=== PATIENT | female | born 1960 | race Caucasian/White ===

== ENCOUNTER 2017-11-26 00:36 | Day surgery (SDC) | payer OTHER ==
[~2017-11-26 00:36] MED LIST: AFEDITAB CR; HYDACE5; HYDCHL25; METCAR750; METO100; NIFE20; OXYACE5T PO; OXYACE7.5T PO; TRAM50; WARF4; WARF5 PO
== END 2017-11-26 13:50 | disposition home or self-care (01) ==
LOC: ATC 00:36
DX: R77.8 Other specified abnormalities of plasma proteins (principal); D47.3 Essential (hemorrhagic) thrombocythemia; R61 Generalized hyperhidrosis; D64.9 Anemia, unspecified; E78.1 Pure hyperglyceridemia; R94.5 Abnormal results of liver function studies; I10 Essential (primary) hypertension; E78.5 Hyperlipidemia, unspecified
CPT/HCPCS: 36415; 80400; 82533; 96372; J0834

== ENCOUNTER → 2018-05-21 | Outpatient (CLI) | payer OTHER | END | disposition home or self-care (01) | LOC: LAB SHORT 18:25 → LAB 18:25 | DX: R30.0 Dysuria (principal) | CPT/HCPCS: 87086 ==

== ENCOUNTER 2018-09-16 16:21 | Emergency (ER) | payer OTHER ==
[~2018-09-16] VITALS: Ht 167.6 cm; Wt 56.7 kg
[~2018-09-16 16:21] MED LIST changes: +METO50 PO
[2018-09-16 17:03] LABS: Source, Urine Clean Catch
[2018-09-16 17:06] LABS: Appearance, Urine Hazy (Clear); Bilirubin, Urine Neg (Neg); Blood, Urine 2+ (Neg); Color, Urine Yellow (P-Yellow); Glucose Qualitative, Urine Neg (Neg); Ketones, Urine Neg (Neg); Leukocyte Esterase, Urine 3+ (Neg); Nitrite, Urine Neg (Neg); Protein, Urine Neg (Neg); Specific Gravity, Urine 1.015 (1.003-1.022); Urobilinogen, Urine NORM (Normal)
[2018-09-16 17:19] LABS: Bacteria Rare /hpf; Red Blood Cells, Urine 0-2 /hpf (0-2); Squamous Epithelial Cells Few /hpf (Few)
[2018-09-16] MEDS ORDERED: Ultram50 MG PO (18:10)
[2018-09-16] MEDS ORDERED: Lomotil Tablet1 EACH PO (18:10)
[2018-09-16] MEDS ORDERED: CEPH500 PO (18:10)
[2018-09-16] MEDS ORDERED: Diflucan100 MG PO (18:10)
== END 2018-09-16 18:19 | disposition home or self-care (01) ==
LOC: ER 16:21
PROVIDERS: Emergency Medicine
DX: B37.49 Other urogenital candidiasis (principal); R19.7 Diarrhea, unspecified
CPT/HCPCS: 81001; 87077; 87086; 87186; 99283

== ENCOUNTER 2018-10-19 11:28 | Observation (INO) | payer OTHER ==
[~2018-10-19] VITALS: Ht 170.2 cm; Wt 52.0 kg
[~2018-10-19 11:28] MED LIST changes: +CEPH500 PO; +Diflucan100 MG PO; +Lomotil Tablet1 EACH PO; +Ultram50 MG PO
[2018-10-19 12:05] LABS: BASOPHILS ABSOLUTE AUTO 0.09 K/mm3 (0.00-0.23); BASOPHILS PERCENT AUTO 1 % (0-2); EOSINOPHILS ABSOLUTE AUTO 0.13 K/mm3 (0.00-0.68); EOSINOPHILS PERCENT AUTO 1 % (0-6); Hematocrit 36.6 % (33.0-51.0); Hemoglobin 12.5 g/dL (11.5-16.0); IMMATURE GRAN ABSOLUTE AUTO 0.03 K/mm3 (0.00-0.10); IMMATURE GRAN PERCENT AUTO 0 % (0-1); LYMPHOCYTES ABSOLUTE AUTO 2.86 K/mm3 (0.84-5.20); LYMPHOCYTES PERCENT AUTO 25 % (21-46); MONOCYTES ABSOLUTE AUTO 0.89 K/mm3 (0.16-1.47); MONOCYTES PERCENT AUTO 8 % (4-13); Mean Corpuscular HGB 31.1 pg (26.0-34.0); Mean Corpuscular HGB Conc 34.2 g/dL (31.5-36.5); Mean Corpuscular Volume 91 fL (80-100); Mean Platelet Volume 8.9 fL (9.1-12.4); NEUTROPHILS ABSOLUTE AUTO 7.26 K/mm3 (1.96-9.15); NEUTROPHILS PERCENT AUTO 64 % (41-73); Platelet Count 415 K/mm3 (150-400); RDW Coefficient Variation 13.7 % (11.7-14.2); RDW Standard Deviation 46.2 fL (35.1-46.3); Red Blood Cell Count 4.02 M/mm3 (3.80-5.20); White Blood Cell Count 11.26 K/mm3 (4.00-11.30)
[2018-10-19 12:25] LABS: International Normalized Ratio 0.95; Prothrombin Time Results 10.1 Sec (9.7-11.5)
[2018-10-19 12:39] LABS: Alanine Aminotransfer (ALT/SGP 18 U/L (12-78); Albumin/Globulin Ratio 0.8 (0.8-1.8); Alk Phos 118 U/L (50-136); Anion Gap 10 mmol/L (6-16); Aspartate Aminotrans (AST/SGOT 20 U/L (12-37); Bilirubin, Total 0.5 mg/dL (0.1-1.0); Blood Urea Nitrogen 32 mg/dL (8-24); Bun/Creatinine Ratio 36.9 (12.0-20.0); CO2, Blood 24 mmol/L (21-32); Calcium, Blood 9.5 mg/dL (8.5-10.1); Chloride, Blood 95 mmol/L (98-108); Creatinine, Blood 0.87 mg/dL (0.40-1.00); Globulin, Blood 4.9 g/dL (2.2-4.0); Glomerular Filtration Rate >60 (60-); Glucose, Blood 83 mg/dL (70-99); Potassium, Blood 3.7 mmol/L (3.5-5.5); Sodium, Blood 129 mmol/L (136-145); Total Protein, Blood 8.9 g/dL (6.4-8.2); Troponin I 0.052 ng/mL (0.000-0.040)
[2018-10-19 16:01] LABS: Source, Urine Clean Catch
[2018-10-19 16:12] LABS: Bilirubin, Urine Neg (Neg); Blood, Urine 2+ (Neg); Glucose Qualitative, Urine Neg (Neg); Ketones, Urine Neg (Neg); Leukocyte Esterase, Urine 1+ (Neg); Nitrite, Urine Neg (Neg); Protein, Urine Neg (Neg); Specific Gravity, Urine 1.015 (1.003-1.022); Urobilinogen, Urine NORM (Normal)
[2018-10-19 16:21] LABS: Appearance, Urine Clear (Clear); Color, Urine Yellow (P-Yellow)
[2018-10-19 16:23] LABS: Red Blood Cells, Urine 0-2 /hpf (0-2)
[2018-10-19 16:24] LABS: Bacteria Rare /hpf; Squamous Epithelial Cells Many /hpf (Few)
[2018-10-19] MEDS ORDERED: [UNRECOGNIZED DRUG - CODE] PO (16:51)
[2018-10-19] MEDS ORDERED: CHLO25B PO (18:07)
[2018-10-19] MEDS ORDERED: ACID REDUCER 1150 MG PO (18:07)
[2018-10-19] MEDS ORDERED: LISI20 PO (18:08)
--- NOTE | 2018-10-19 19:17 | NUR ---
SHIFT SUMMARY PATIENT ADMITTED AT 1740. QUICK ADMIT COMPLETED. TELE IN PLACE. A&O X4, INDEPENDENT IN THE ROOM. CARDIAC DIET. BED IN LOWEST POSITION, CALL LIGHT WITHIN REACH. DENIES ANY PAIN/CHEST PAIN AT THIS TIME.
[2018-10-19 20:25] LABS: Creatine Kinase MB Index 3.8 (0.0-4.0); Troponin I 0.07 ng/mL (0.000-0.040)
--- NOTE | 2018-10-20 03:47 | NUR ---
SHIFT SUMMARY PT ADMITTED FOR ACUTE CORONARY SYNDROME. INCREASED TROPONINS. DNR. CARDIAC DIET. INDEPENDENT. 20 G IV L HAND. MEDICATIONS WHOLE WITH WATER. TELE-NSR AT A RATE OF 65. PT REPORTED HAVING AN OUTPATIENT PET SCNA TOMMORROW AND NEEDING LOW CAR, LOW SUGAR DIET. PT PRESENTED TO THE ED WITH C/O CP. THE PT REPORTED SHE WAS DRIVING WHEN SHE BEGAN TO HAVE PAIN IN THE L SIDE OF HER CHEST THAT RADIATED TO HER BACK THAT LASTED FOR ABOUT AN HR. THE PTS CP HAS SINCE RESOLVED ON ITS OWN. THE PTS TROPONIN DID INCREASE FROM 0.052 TO 0.070 WITH THE SECOND DRAW. THE PT HAS DENIED CP AND IS CONCEARNED ABOUT NOT BEING ABLE TO DC TOMORROW FOR PET SCAN. THE PT HAS APPEARED TO SLEEP COMFORTABLY MOST OF THE NIGHT WITH NO APPARENT SIGNS OF ACUTE DISTRESS. ABLE TO MAKE NEEDS KNOWN AND CALL LIGHT IN REACH.
[2018-10-20 05:31] LABS: Hematocrit 31.7 % (33.0-51.0); Mean Corpuscular HGB 31.3 pg (26.0-34.0); Mean Corpuscular HGB Conc 34.7 g/dL (31.5-36.5); Mean Corpuscular Volume 90 fL (80-100); Mean Platelet Volume 8.9 fL (9.1-12.4); Platelet Count 391 K/mm3 (150-400); RDW Coefficient Variation 13.5 % (11.7-14.2); Red Blood Cell Count 3.51 M/mm3 (3.80-5.20); White Blood Cell Count 8.06 K/mm3 (4.00-11.30)
[2018-10-20 05:39] LABS: Creatine Kinase MB 2.2 ng/mL (0.0-3.6); Creatine Kinase MB Index 4.4 (0.0-4.0); Troponin I 0.07 ng/mL (0.000-0.040)
[2018-10-20 06:01] LABS: Anion Gap 11 mmol/L (6-16); Blood Urea Nitrogen 31 mg/dL (8-24); Bun/Creatinine Ratio 36.2 (12.0-20.0); CO2, Blood 22 mmol/L (21-32); Calcium, Blood 8.9 mg/dL (8.5-10.1); Chloride, Blood 94 mmol/L (98-108); Cholesterol 179 mg/dL (50-200); Creatinine, Blood 0.86 mg/dL (0.40-1.00); Glomerular Filtration Rate >60 (60-); Glucose, Blood 79 mg/dL (70-99); HDL Cholesterol 36 mg/dL (>39); LDL/HDL RATIO 3.2; Low Density Lipoprotein Chol 116 mg/dL (0-110); Potassium, Blood 3.6 mmol/L (3.5-5.5); Sodium, Blood 127 mmol/L (136-145); Triglycerides 133 mg/dL (30-160); Very Low Density Lipoprot Chol 26 mg/dL (6-32)
--- NOTE | 2018-10-20 09:16 | NUR ---
Echocardiogram completed.
--- NOTE | 2018-10-20 17:35 | NUR ---
PT HAS BEEN WORKING ON HAVING HER STRESS TEST COMPLETED TODAY. PT AOX4 NO CHEST PAIN REPORTED OR SHORTNESS OF BREATH. PT WAITING FOR RESULTS AT THIS TIME. NO DISTRESS NOTED INDEPENDENT IN ROOM.
[2018-10-21 05:36] LABS: Bun/Creatinine Ratio 26.4 (12.0-20.0); Calcium, Blood 8.9 mg/dL (8.5-10.1); Creatinine, Blood 1.48 mg/dL (0.40-1.00); Potassium, Blood 3.5 mmol/L (3.5-5.5)
--- NOTE | 2018-10-21 07:20 | NUR ---
SHIFT SUMMARY: NO CHEST PAIN THIS SHIFT. AWAITING RESULTS FROM STRESS TEST THIS AM, PT ANXIOUSLY AWAITING TO GO HOME, STATES SHE IS "SICK OF BEING HERE". PT REQUESTS TO BE LEFT ALONE ALL NIGHT AFTER PM VITALS. THIS WISH WAS RESPECTED BY STAFF THIS SHIFT. NO OTHER CHANGES TO REPORT. WILL CONT TO MONITOR AND PROVIDE CARE UNTIL PRESUMED BY ONCOMING RN.
[2018-10-21] MEDS ORDERED: ASPI81CH PO (12:07)
[2018-10-21] MEDS ORDERED: ATOR40TA PO (12:23)
--- NOTE | 2018-10-21 12:46 | NUR ---
PT AOX4 AND COOPERATIVE OF ALL CARE. PT HAD ALL PAPERS REVIEWED AND SCHEDULED APPOINTMENTS COVERED AND SIGNED PAPERS. EDUCATIONL MATERIAL SENT. PT REFUSED ESCORT OUT AND WALKED OUT ON HER OWN POWER. NO DISTRESS NOTED AND NO CHEST PAIN REPORTED TODAY.
== END 2018-10-21 12:56 | disposition home or self-care (01) ==
LOC: ER 11:28 → MEDS 11:29
PROVIDERS: Physician Assistant; ADMIT Internal Medicine
DX: R07.89 Other chest pain (principal); I10 Essential (primary) hypertension; N17.9 Acute kidney failure, unspecified; E87.1 Hypo-osmolality and hyponatremia; I95.9 Hypotension, unspecified; D64.9 Anemia, unspecified; C79.51 Secondary malignant neoplasm of bone; M84.48XA Pathological fracture, other site, initial encounter for fracture; K21.9 Gastro-esophageal reflux disease without esophagitis; E78.5 Hyperlipidemia, unspecified; K76.0 Fatty (change of) liver, not elsewhere classified; M54.9 Dorsalgia, unspecified; G47.00 Insomnia, unspecified; G89.29 Other chronic pain; E55.9 Vitamin D deficiency, unspecified; R63.4 Abnormal weight loss; R79.89 Other specified abnormal findings of blood chemistry; F17.210 Nicotine dependence, cigarettes, uncomplicated; Z88.6 Allergy status to analgesic agent; Z88.0 Allergy status to penicillin; Z88.5 Allergy status to narcotic agent; Z88.8 Allergy status to other drugs, medicaments and biological substances; Z79.899 Other long term (current) drug therapy; Z90.710 Acquired absence of both cervix and uterus; Z98.890 Other specified postprocedural states; Z68.1 Body mass index [BMI] 19.9 or less, adult
CPT/HCPCS: 36415; 71046; 78452; 80048; 80053; 80061; 81001; 82550; 82553; 83036; 84484; 85025; 85027; 85610; 87086; 93005; 93010; 93017; 93306; 99285-25; A9500; C9113; G0378; J0706; J2785

== ENCOUNTER → 2018-10-27 | Outpatient (CLI) | payer OTHER ==
[~2018-10-27] MED LIST changes: +ACID REDUCER 1150 MG PO; +ASPI81CH PO; +ATOR40TA PO; +CHLO25B PO; +LISI20 PO; +[UNRECOGNIZED DRUG - CODE] PO
[2018-10-27 20:13] LABS: Anion Gap 6 mmol/L (6-16); Blood Urea Nitrogen 16 mg/dL (8-24); Bun/Creatinine Ratio 19.7 (12.0-20.0); CO2, Blood 27 mmol/L (21-32); Calcium, Blood 8.6 mg/dL (8.5-10.1); Chloride, Blood 94 mmol/L (98-108); Creatinine, Blood 0.81 mg/dL (0.40-1.00); Glomerular Filtration Rate >60 (60-); Glucose, Blood 89 mg/dL (70-99); Potassium, Blood 4.1 mmol/L (3.5-5.5); Sodium, Blood 127 mmol/L (136-145)
[2018-10-27 20:27] LABS: Sodium, Urine, Random 53 mmol/L (20-110)
[2018-10-27 20:39] LABS: Osmolality, Urine 390 mos/kg (15-1400)
[2018-10-27 20:40] LABS: Osmolality, Serum 273 mos/KG (275-300)
== END ==
LOC: LAB 19:32 → LAB SHORT 19:32
PROVIDERS: Family Medicine
DX: E87.1 Hypo-osmolality and hyponatremia (principal)
CPT/HCPCS: 80048; 83930; 83935; 84300; 84443

== ENCOUNTER → 2019-05-11 | Outpatient (CLI) | payer OTHER ==
[2019-05-11 09:36] LABS: BASOPHILS ABSOLUTE AUTO 0.07 K/mm3 (0.00-0.23); BASOPHILS PERCENT AUTO 1 % (0-2); EOSINOPHILS ABSOLUTE AUTO 0.07 K/mm3 (0.00-0.68); EOSINOPHILS PERCENT AUTO 1 % (0-6); Hematocrit 36.5 % (33.0-51.0); Hemoglobin 13.2 g/dL (11.5-16.0); IMMATURE GRAN ABSOLUTE AUTO 0.02 K/mm3 (0.00-0.10); IMMATURE GRAN PERCENT AUTO 0 % (0-1); LYMPHOCYTES PERCENT AUTO 23 % (21-46); MONOCYTES ABSOLUTE AUTO 0.82 K/mm3 (0.16-1.47); MONOCYTES PERCENT AUTO 8 % (4-13); Mean Corpuscular HGB Conc 36.2 g/dL (31.5-36.5); Mean Corpuscular Volume 86 fL (80-100); Mean Platelet Volume 8.5 fL (9.1-12.4); NEUTROPHILS ABSOLUTE AUTO 6.78 K/mm3 (1.96-9.15); NEUTROPHILS PERCENT AUTO 67 % (41-73); Platelet Count 375 K/mm3 (150-400); RDW Coefficient Variation 12.4 % (11.7-14.2); RDW Standard Deviation 38.6 fL (35.1-46.3); Red Blood Cell Count 4.26 M/mm3 (3.80-5.20); White Blood Cell Count 10.06 K/mm3 (4.00-11.30)
[2019-05-11 09:48] LABS: Albumin, Blood 4.1 g/dL (3.4-5.0); Albumin/Globulin Ratio 0.9 (0.8-1.8); Bilirubin, Total 0.5 mg/dL (0.1-1.0); Globulin, Blood 4.6 g/dL (2.2-4.0); Potassium, Blood 4.1 mmol/L (3.5-5.5); Total Protein, Blood 8.7 g/dL (6.4-8.2)
== END ==
LOC: LAB EV 09:32 → LAB SHORT 09:32
PROVIDERS: Family Medicine
DX: R11.2 Nausea with vomiting, unspecified (principal)
CPT/HCPCS: 80053; 85025

== ENCOUNTER 2019-11-07 18:03 | Emergency (ER) | payer OTHER ==
[~2019-11-07] VITALS: Ht 160 cm; Wt 59.9 kg
[2019-11-07] MEDS ORDERED: Prinivil10 MG PO (19:20)
[2019-11-07] MEDS ORDERED: AMLO10 PO (19:20)
== END 2019-11-07 22:16 | disposition home or self-care (01) ==
LOC: ER 18:03
DX: M79.661 Pain in right lower leg (principal); I10 Essential (primary) hypertension; Z87.891 Personal history of nicotine dependence; Z88.0 Allergy status to penicillin; Z88.5 Allergy status to narcotic agent; Z88.8 Allergy status to other drugs, medicaments and biological substances
CPT/HCPCS: 99283; A9270

== ENCOUNTER 2019-11-26 06:45 | Day surgery (SDC) | payer OTHER ==
[~2019-11-26] VITALS: Ht 162.6 cm; Wt 60.0 kg
[~2019-11-26 06:45] MED LIST changes: +AMLO10 PO; +Prinivil10 MG PO
[2019-11-26] MEDS ORDERED: CILO100 PO (09:36)
--- NOTE | 2019-11-26 11:19 | NUR ---
REMAINDER OF AIR REMOVED FROM TR BAND. NO BLEEDING AT SITE. TO ROOM AIR.
--- NOTE | 2019-11-26 12:49 | NUR ---
DISCHARGE PT AMBULATED TO RESTROOM WITHOUT COMPLICATIONS. PT ALSO DRESSED SELF WITH NO COMPLICATIONS. PT AOX4. DENIES ANY PAIN. PT STATES HER UNDERSTANDING OD DISCHARGE AND SITE CARE INSTRUCTIONS AND DENIES ANY QUESTIONS OR CONCERNS. TR BAND REMOVED. SITE CLEANED UP AND CLOTH DOT DRESSING APPLIED. WHITE ARM BOARD REVERSED AND PLACED BACK ON ARM. PT SENT HOME WITH A SLING. IV DCD WITH CATH INTACT. VSS. PT SENT HOME WITH FRIEND JAMES.
== END 2019-11-26 12:15 | disposition home or self-care (01) ==
LOC: MHTC 06:45
DX: I70.213 Atherosclerosis of native arteries of extremities with intermittent claudication, bilateral legs (principal); I10 Essential (primary) hypertension; E78.5 Hyperlipidemia, unspecified; M54.9 Dorsalgia, unspecified; G89.29 Other chronic pain; E55.9 Vitamin D deficiency, unspecified; Z79.899 Other long term (current) drug therapy; Z79.82 Long term (current) use of aspirin; Z87.891 Personal history of nicotine dependence; Z88.0 Allergy status to penicillin; Z88.5 Allergy status to narcotic agent; Z88.8 Allergy status to other drugs, medicaments and biological substances
CPT/HCPCS: 36245; 75630; 75774; 76937; 85347; 99152; 99153; C1769; C1887; C1894; J1644; J2250; J3010; J7030; Q9967

== ENCOUNTER → 2020-08-31 | Outpatient (CLI) | payer OTHER ==
[~2020-08-31] MED LIST changes: +CILO100 PO; +CLOP75 PO; +L-Glutamine500 MG PO; +MELA3 PO
[2020-08-31 09:14] LABS: BASOPHILS ABSOLUTE AUTO 0.01 K/mm3 (0.00-0.23); BASOPHILS PERCENT AUTO 0 % (0-2); EOSINOPHILS ABSOLUTE AUTO 0.11 K/mm3 (0.00-0.68); EOSINOPHILS PERCENT AUTO 1 % (0-6); Hematocrit 37.3 % (33.0-51.0); Hemoglobin 13.1 g/dL (11.5-16.0); IMMATURE GRAN ABSOLUTE AUTO 0.06 K/mm3 (0.00-0.10); IMMATURE GRAN PERCENT AUTO 0 % (0-1); LYMPHOCYTES ABSOLUTE AUTO 1.52 K/mm3 (0.84-5.20); LYMPHOCYTES PERCENT AUTO 10 % (21-46); MONOCYTES ABSOLUTE AUTO 1.35 K/mm3 (0.16-1.47); MONOCYTES PERCENT AUTO 9 % (4-13); Mean Corpuscular HGB 32.4 pg (26.0-34.0); Mean Corpuscular HGB Conc 35.1 g/dL (31.5-36.5); Mean Corpuscular Volume 92 fL (80-100); Mean Platelet Volume 9.6 fL (9.1-12.4); NEUTROPHILS ABSOLUTE AUTO 11.58 K/mm3 (1.96-9.15); NEUTROPHILS PERCENT AUTO 79 % (41-73); Platelet Count 360 K/mm3 (150-400); RDW Coefficient Variation 12.4 % (11.7-14.2); RDW Standard Deviation 41.7 fL (35.1-46.3); Red Blood Cell Count 4.04 M/mm3 (3.80-5.20); White Blood Cell Count 14.63 K/mm3 (4.00-11.30)
[2020-08-31 09:38] LABS: Alanine Aminotransfer (ALT/SGP 23 U/L (12-78); Albumin/Globulin Ratio 1.1 (0.8-1.8); Alk Phos 87 U/L (40-126); Anion Gap 6 mmol/L (6-16); Aspartate Aminotrans (AST/SGOT 16 U/L (12-37); Bilirubin, Total 0.4 mg/dL (0.1-1.0); Blood Urea Nitrogen 22 mg/dL (8-24); Bun/Creatinine Ratio 30.1 (12.0-20.0); CO2, Blood 28 mmol/L (21-32); Chloride, Blood 96 mmol/L (98-108); Creatinine, Blood 0.73 mg/dL (0.40-1.00); Free Thyroxine 1.01 ng/dL (0.70-1.60); Globulin, Blood 3.7 g/dL (2.2-4.0); Glomerular Filtration Rate >60 (60-); Glucose, Blood 81 mg/dL (70-99); Potassium, Blood 3.9 mmol/L (3.5-5.5); Sodium, Blood 130 mmol/L (136-145); Thyroid Stimulating Hormone 2.303 uIU/mL (0.360-4.800); Total Protein, Blood 7.7 g/dL (6.4-8.2)
== END | disposition home or self-care (01) ==
LOC: LAB EV 09:09 → LAB SHORT 09:09
PROVIDERS: General Practice
DX: M54.16 Radiculopathy, lumbar region (principal); R53.81 Other malaise
CPT/HCPCS: 80053; 82607; 82746; 84439; 84443; 85025; 85651

== ENCOUNTER 2021-09-24 09:51 | Day surgery (SDC) | payer OTHER ==
[~2021-09-24] VITALS: Ht 160 cm; Wt 63.0 kg
[~2021-09-24 09:51] MED LIST changes: +CALCIUM 600 WI1 EAC1; +MAGCHL64ER; +OXYC5; +Robaxin750 MG
[2021-09-24 11:39] LABS: BASOPHILS PERCENT AUTO 1 % (0-2); EOSINOPHILS ABSOLUTE AUTO 0.08 K/mm3 (0.00-0.68); EOSINOPHILS PERCENT AUTO 1 % (0-6); Hematocrit 36.9 % (33.0-51.0); Hemoglobin 12.2 g/dL (11.5-16.0); IMMATURE GRAN ABSOLUTE AUTO 0.03 K/mm3 (0.00-0.10); IMMATURE GRAN PERCENT AUTO 0 % (0-1); LYMPHOCYTES ABSOLUTE AUTO 2.04 K/mm3 (0.84-5.20); LYMPHOCYTES PERCENT AUTO 23 % (21-46); MONOCYTES ABSOLUTE AUTO 0.51 K/mm3 (0.16-1.47); MONOCYTES PERCENT AUTO 6 % (4-13); Mean Corpuscular HGB 30.8 pg (26.0-34.0); Mean Corpuscular HGB Conc 33.1 g/dL (31.5-36.5); Mean Corpuscular Volume 93 fL (80-100); Mean Platelet Volume 9.8 fL (9.1-12.4); NEUTROPHILS ABSOLUTE AUTO 5.98 K/mm3 (1.96-9.15); NEUTROPHILS PERCENT AUTO 69 % (41-73); Platelet Count 323 K/mm3 (150-400); RDW Coefficient Variation 12.4 % (11.7-14.2); RDW Standard Deviation 42.5 fL (35.1-46.3); Red Blood Cell Count 3.96 M/mm3 (3.80-5.20); White Blood Cell Count 8.74 K/mm3 (4.00-11.30)
[2021-09-24 11:54] LABS: International Normalized Ratio 0.97; Prothrombin Time Results 10.2 Sec (9.7-11.5)
[2021-09-24 12:22] LABS: Anion Gap 7 mmol/L (6-16); Blood Urea Nitrogen 19 mg/dL (8-24); CO2, Blood 25 mmol/L (21-32); Calcium, Blood 8.9 mg/dL (8.5-10.1); Chloride, Blood 106 mmol/L (98-108); Creatinine, Blood 0.87 mg/dL (0.40-1.00); Glomerular Filtration Rate >60 (60-); Glucose, Blood 103 mg/dL (70-99); Potassium, Blood 4.3 mmol/L (3.5-5.5); Sodium, Blood 138 mmol/L (136-145)
[2021-09-24] MEDS ORDERED: AMIT50 PO (12:41)
[2021-09-24] MEDS ORDERED: XARELTO20 MG PO (12:47)
--- NOTE | 2021-09-24 13:10 | NUR ---
PATIENT WAS BROUGHT BACK TO THE [facility] AT 1100 WHEN SHE ARRIVED AND UPDATED ON THE EXPECTED WAIT TIME. SHE WAS OK WITH WAITING. GIVEN A BED AND WARM BLANKET AND TV TO WATCH AND ALLOW TO SLEEP. LAB CAME BY [facility] AT 1131 AND PATIENT TOLERATED WELL. 1245 BEGAN PREPARING PATIENT FOR PROCEDURE. PIV STARTED AND MEDICAITONS RECONCILED AND VITAL SIGNS TAKEN. PATIENT CHANGED INTO A GOWN AND TEACHING DONE FOR PROCEDURE. PATIENT HAS BEEN NPO.
--- NOTE | 2021-09-24 16:09 | NUR ---
PATIENT RETURNED FROM THE [facility] POST PROCEDURE, HOB FLAT, PLACED ON CHERRIE MONITOR, VVS. AWAKE, NO PAIN NOTED. RIGHT GROIN WITH ANGIOSEAL CDI, NO HEMATOMA. NO BLEEDING NOTED. CALL LIGHT IN REACH.
--- NOTE | 2021-09-24 16:14 | NUR ---
DR. VAZQUEZ AT THE BEDSIDE AND SPOKE WITH THE PATIENT ABOUT RESULTS OF PROCEDURE.
--- NOTE | 2021-09-24 17:31 | NUR ---
1700 PATIENT UP OOB TO THE RESTROOM. PIV REMOVED PER PATIENT REQUEST. VVS. GROINS SITE STABLE UNCHANGED. PATIENT OFF THE MONITOR AND UP AD JOHN.
--- NOTE | 2021-09-24 17:51 | NUR ---
PATEINT WAS DISCAHRGED HOME WITH INSTRUCTIONS FOR FOLLOW UP IN 4 WEEKS. RIDE PICKING HER UP AT THE DOOR. MINESH CALLED INTO [facility] BY DR. VAZQUEZ. FIRST DOSE GIVEN HERE 15 MG XARELTO PO HERE PRIOR TO DISCHARGE. SHE WILL SERVICE SUPERINTENDENT HER SCRIPT TOMORROW. PATIENT RETAINED ALL HER BELONGINGS AND DISCAHRGE INSTRUCTIONS.
== END 2021-09-24 17:50 | disposition home or self-care (01) ==
LOC: MHTC 09:51
PROVIDERS: Radiology Diagnostic Radiology
DX: I70.213 Atherosclerosis of native arteries of extremities with intermittent claudication, bilateral legs (principal); I70.229 Atherosclerosis of native arteries of extremities with rest pain, unspecified extremity; I10 Essential (primary) hypertension; E78.5 Hyperlipidemia, unspecified; K21.9 Gastro-esophageal reflux disease without esophagitis; Z88.5 Allergy status to narcotic agent; Z88.0 Allergy status to penicillin; Z87.891 Personal history of nicotine dependence
CPT/HCPCS: 36415; 37225; 75716; 75774; 76937; 80048; 85025; 85610; 99152; 99153; A9270; C1714; C1725; C1760; C1769; C1884; C1887; C1894; C2623; J1644; J2250; J2997; J3010; J7030; J7050; Q9967

== ENCOUNTER → 2021-10-13 | Outpatient (CLI) | payer OTHER ==
[~2021-10-13] MED LIST changes: +AMIT50 PO; +XARELTO20 MG PO
[2021-10-13 12:05] LABS: BASOPHILS ABSOLUTE AUTO 0.07 K/mm3 (0.00-0.23); BASOPHILS PERCENT AUTO 1 % (0-2); EOSINOPHILS ABSOLUTE AUTO 0.17 K/mm3 (0.00-0.68); EOSINOPHILS PERCENT AUTO 2 % (0-6); Hematocrit 37.1 % (33.0-51.0); Hemoglobin 12.6 g/dL (11.5-16.0); IMMATURE GRAN ABSOLUTE AUTO 0.02 K/mm3 (0.00-0.10); IMMATURE GRAN PERCENT AUTO 0 % (0-1); LYMPHOCYTES PERCENT AUTO 29 % (21-46); MONOCYTES ABSOLUTE AUTO 0.74 K/mm3 (0.16-1.47); MONOCYTES PERCENT AUTO 8 % (4-13); Mean Corpuscular HGB 31.1 pg (26.0-34.0); Mean Corpuscular Volume 92 fL (80-100); Mean Platelet Volume 9.6 fL (9.1-12.4); NEUTROPHILS ABSOLUTE AUTO 5.36 K/mm3 (1.96-9.15); NEUTROPHILS PERCENT AUTO 60 % (41-73); Platelet Count 382 K/mm3 (150-400); RDW Coefficient Variation 12.5 % (11.7-14.2); RDW Standard Deviation 41.5 fL (35.1-46.3); Red Blood Cell Count 4.05 M/mm3 (3.80-5.20); White Blood Cell Count 8.96 K/mm3 (4.00-11.30)
== END ==
LOC: LAB SHORT 11:58
PROVIDERS: Physician Assistant
DX: M79.671 Pain in right foot (principal)
CPT/HCPCS: 84550; 85025; 85651

== ENCOUNTER 2021-10-30 08:20 | Day surgery (SDC) | payer OTHER | END 2021-10-30 22:48 | disposition home or self-care (01) | LOC: WOUND 08:20 | DX: L97.512 Non-pressure chronic ulcer of other part of right foot with fat layer exposed (principal); L97.529 Non-pressure chronic ulcer of other part of left foot with unspecified severity; I70.201 Unspecified atherosclerosis of native arteries of extremities, right leg; I25.10 Atherosclerotic heart disease of native coronary artery without angina pectoris; I10 Essential (primary) hypertension; E78.5 Hyperlipidemia, unspecified; M85.80 Other specified disorders of bone density and structure, unspecified site; Z88.0 Allergy status to penicillin; Z88.8 Allergy status to other drugs, medicaments and biological substances; Z88.5 Allergy status to narcotic agent; Z87.891 Personal history of nicotine dependence; Z86.718 Personal history of other venous thrombosis and embolism; Z79.01 Long term (current) use of anticoagulants; Z79.82 Long term (current) use of aspirin | CPT/HCPCS: A9270; G0463 ==

== ENCOUNTER 2021-11-06 03:55 | Day surgery (SDC) | payer OTHER | END 2021-11-06 22:58 | disposition home or self-care (01) | LOC: WOUND 03:55 | DX: I70.201 Unspecified atherosclerosis of native arteries of extremities, right leg (principal); Z79.01 Long term (current) use of anticoagulants; Z79.82 Long term (current) use of aspirin; Z87.2 Personal history of diseases of the skin and subcutaneous tissue | CPT/HCPCS: G0463 ==

== ENCOUNTER 2023-05-23 09:12 | Inpatient (IN) | payer OTHER ==
[2023-05-23] VITALS (13 sets, daily range): BP systolic 91–128; BP diastolic 44–74
[~2023-05-23] VITALS: Ht 160 cm; Wt 60.9 kg
[~2023-05-23 09:12] MED LIST changes: -Robaxin750 MG; +Robaxin750 MG PO
[2023-05-23 11:26] LABS: BASOPHILS ABSOLUTE AUTO 0.03 K/mm3 (0.00-0.23); BASOPHILS PERCENT AUTO 0 % (0-2); EOSINOPHILS PERCENT AUTO 0 % (0-6); Hemoglobin 11.8 g/dL (11.5-16.0); IMMATURE GRAN ABSOLUTE AUTO 0.11 K/mm3 (0.00-0.10); IMMATURE GRAN PERCENT AUTO 1 % (0-1); LYMPHOCYTES ABSOLUTE AUTO 1.04 K/mm3 (0.84-5.20); LYMPHOCYTES PERCENT AUTO 7 % (21-46); MONOCYTES ABSOLUTE AUTO 1.35 K/mm3 (0.16-1.47); MONOCYTES PERCENT AUTO 9 % (4-13); Mean Corpuscular HGB 30.9 pg (26.0-34.0); Mean Corpuscular HGB Conc 35.8 g/dL (31.5-36.5); Mean Corpuscular Volume 86 fL (80-100); Mean Platelet Volume 8.5 fL (9.1-12.4); NEUTROPHILS ABSOLUTE AUTO 12.42 K/mm3 (1.96-9.15); NEUTROPHILS PERCENT AUTO 83 % (41-73); Platelet Count 512 K/mm3 (150-400); RDW Coefficient Variation 13.2 % (11.7-14.2); RDW Standard Deviation 41.5 fL (35.1-46.3); Red Blood Cell Count 3.82 M/mm3 (3.80-5.20); White Blood Cell Count 14.95 K/mm3 (4.00-11.30)
[2023-05-23 11:48] LABS: Albumin, Blood 3.2 g/dL (3.4-5.0); Albumin/Globulin Ratio 0.7 (0.8-1.8); Bilirubin, Total 0.7 mg/dL (0.1-1.0); Bun/Creatinine Ratio 9.3 (12.0-20.0); Creatinine, Blood 0.65 mg/dL (0.40-1.00); Globulin, Blood 4.3 g/dL (2.2-4.0); Potassium, Blood 3.3 mmol/L (3.5-5.5); Total Protein, Blood 7.5 g/dL (6.4-8.2)
[2023-05-23 14:42] LABS: Anti-Xa UFH, PHA Monitoring <0.10 IU/mL; International Normalized Ratio 1.04; Prothrombin Time Results 10.9 Sec (9.7-11.5)
[2023-05-23 15:09] LABS: Influenza A, PCR NEGATIVE (NEGATIVE); Influenza B, PCR NEGATIVE (NEGATIVE); Resp Syncytial Virus, PCR NEGATIVE (NEGATIVE); SARS-Cov-2 (COVID-19) PCR, MMC NEGATIVE (NEGATIVE)
[2023-05-23] MEDS ORDERED: MAGNESIUM GLU27.5 M1 PO (17:30)
--- NOTE | 2023-05-23 17:37 | NUR ---
Assumed care of pt on arrival to ICU 3 at 1650 from labeling machine operator. Bedside report received from labeling machine operator staff. Pt is pending transfer to [facility] for emergent resolution of critical left main blockage. Pt arrived with TR band in place to R wrist with reportedly 11 mL of air. Site free of drainage/hematoma. Sensation, pulses equal BUE. Difficulty obtaining SpO2 on R thumb and pointer finger. Able to obtain SpO2 on all other fingers. R thumb and pointer finger slightly more pale in appearance than other fingers. Discussed with pharmacist in charge owner and removed 1 mL air from TR band. Able to measure SpO2 after this intervention. No bleeding resulted from removing 1 mL air. Discussed with patient that she is critically ill. Discussed that the blockage in her heart is affecting 2 of the 3 major vessels. Patient verbalizes understanding. Discussed plan to place A/P zoll patches on patient and have strict bedrest as well as NPO status. Pt agreeable to plan of care. Per report from labeling machine operator, patient does not have any local family. She has a sister in [place] and has requested that we do not notify her. On further questioning, patient states she would like her sister to be her alternate decision maker. After further discussing pt's critical condition, pt called her sister, Johnny, and provided update on condition. Johnny can be reached at [phone]. Plan is for patient to update sister unless the patient cannot speak for herself- then staff may discuss plan of care with sister. Currently, pt is in sinus rhythm with stable BP. SPO2 90% or greater RA. BP stable. When asked about chest pain, pt states "not that bad" and quantifies it as 4 to 5/10 in severity. Assisted pt to use bedpan, pt passed gas but no stool or urine. Pt had good activity tolerance, no dyspnea or other signs of distress. rfid technician in room at this time.
[2023-05-23 17:53] LABS: Bun/Creatinine Ratio 11.2 (12.0-20.0); Calcium, Blood 8.8 mg/dL (8.5-10.1); Creatinine, Blood 0.63 mg/dL (0.40-1.00); Potassium, Blood 3.7 mmol/L (3.5-5.5)
--- NOTE | 2023-05-23 19:50 | NUR ---
ASSUMED CARE OF PT AT 1900 VITAL WNL AT THIS TIME. PT RESTING IN BED. AWAITING BED ASIGNMENT AT [facility]. SEE FULL ASSESSMENT FOR FURTHER INFORMATION.
--- NOTE | 2023-05-23 21:30 | NUR ---
CALLED KANDY BAUMANN AT [facility]. GAVE REPORT ON PT. [facility] HERE AT THIS TIME FOR TRANSPORT. VITALS WNL UPON DEPARTURE.
== END 2023-05-23 21:35 | disposition short-term general hospital (02) | DRG 281 ==
LOC: ER 09:12 → PCU 13:33 → ICUE 13:33
PROVIDERS: Emergency Medicine; Student in an Organized Health Care Education/Training Program; ADMIT Internal Medicine
PROC: 4A023N7 Measurement of Cardiac Sampling and Pressure, Left Heart, Percutaneous Approach (ICD-10-PCS; principal; 2023-05-23)
PROC: B2111ZZ Fluoroscopy of Multiple Coronary Arteries using Low Osmolar Contrast (ICD-10-PCS; 2023-05-23)
PROC: B241ZZ3 Ultrasonography of Multiple Coronary Arteries, Intravascular (ICD-10-PCS; 2023-05-23)
DX: I21.4 Non-ST elevation (NSTEMI) myocardial infarction (principal); E87.1 Hypo-osmolality and hyponatremia; M51.36 Other intervertebral disc degeneration, lumbar region; E87.6 Hypokalemia; E11.51 Type 2 diabetes mellitus with diabetic peripheral angiopathy without gangrene; I25.10 Atherosclerotic heart disease of native coronary artery without angina pectoris; R50.9 Fever, unspecified; I10 Essential (primary) hypertension; E78.5 Hyperlipidemia, unspecified; K21.9 Gastro-esophageal reflux disease without esophagitis; D64.9 Anemia, unspecified; M54.9 Dorsalgia, unspecified; G89.29 Other chronic pain; G47.00 Insomnia, unspecified; Z20.822 Contact with and (suspected) exposure to COVID-19; Z98.890 Other specified postprocedural states; Z98.51 Tubal ligation status; Z79.01 Long term (current) use of anticoagulants; Z90.710 Acquired absence of both cervix and uterus; Z90.722 Acquired absence of ovaries, bilateral; Z88.0 Allergy status to penicillin; Z88.5 Allergy status to narcotic agent; Z88.8 Allergy status to other drugs, medicaments and biological substances; Z79.82 Long term (current) use of aspirin; Z79.899 Other long term (current) drug therapy; Z79.891 Long term (current) use of opiate analgesic; Z87.891 Personal history of nicotine dependence
CPT/HCPCS: 0241U; 36415; 71045; 76937; 80048; 80053; 83036; 83735; 83880; 84484; 85025; 85520; 85610; 85730; 93005; 93010; 93306; 93454; 96374; 99152; 99153; 99285-25; A9270; C1769; C1894; J1644; J2250; J2405; J3010; J7030; J7050; Q9967

== ENCOUNTER 2023-12-11 07:14 | Day surgery (SDC) | payer OTHER ==
[~2023-12-11] VITALS: Ht 160 cm; Wt 60.8 kg
[2023-12-11] VITALS (8 sets, daily range): BP systolic 118–148; BP diastolic 39–72
[~2023-12-11 07:14] MED LIST changes: +GABA300 PO; +MAGNESIUM GLU27.5 M1 PO; +METO25 PO
[2023-12-11] MEDS ORDERED: OTC SLEEP AID PO (07:32)
[2023-12-11] MEDS ORDERED: [UNRECOGNIZED DRUG - OTHER] PO (07:32)
[2023-12-11] MEDS ORDERED: FentaNYL Citrate 50 MCG/ML 2 ML Injection ONE ×3 (09:14→11:30)
[2023-12-11] MEDS ORDERED: Midazolam HCl 1MG / ML 2ML Vial ONE ×4 (09:14→11:30)
[2023-12-11] MEDS ORDERED: NS 1,000 ML IV ONE ×2 (09:15→09:21)
[2023-12-11] MEDS ORDERED: Heparin Sodium 1000 Units/ML 10ML MDV ONE ×2 (09:21→11:33)
[2023-12-11] MEDS ORDERED: Nitroglycerin 2 MG/20 ML BTL ONE (09:21)
[2023-12-11] MEDS ORDERED: NS 250 ML IV ONE (09:21)
[2023-12-11] MEDS ORDERED: NS 100 ML IV ONE (09:21)
[2023-12-11] MEDS ORDERED: Alteplase Recombinant 2 MG / Vial ONE (10:56)
--- NOTE | 2023-12-11 12:10 | NUR ---
ASSUMED CARE OF PT POST PROCEDURE. PT IS DROWSY, BUT EASILY ROUSABLE AND ANSWERING QUESTIONS APPROPRIATELY. PT REPORT MINIMAL DISCOMFORT TO R THIGH POST PROCEDURE. MONITOR SB 50'S, B/P 132/50, SPO2 100% RA. L GROIN NO SWELLING/HEMATOMA, TEGADERM DRSG INTACT; ANGIO SEAL DEPLOYED, PULSES 2+ X 2. PT HAS SLIGHT PURPLE DISCOLORATION TO R TOES AND PLANTAR REGION OF FOOT, POSITIVE DOPPLER SIGNAL X 2. PT DENIES DISCOMFORT IN R FOOT.
--- NOTE | 2023-12-11 12:32 | NUR ---
LEFT GROIN SITE SOFT NON-TENDER WITH NO HEMATOMA, NO PULSATILE BLEEDING AND INTACT DRESSING. CALL LIGHT IN REACH.
--- NOTE | 2023-12-11 13:15 | NUR ---
PT'S HOB ELEVATED, SITE REMAINS UNCHANGED, TAKING SIPS OF FLUID WITHOUT PROBLEM.
--- NOTE | 2023-12-11 14:15 | NUR ---
PT'S PURPLE DISCOLORATION TO R TOES AND PLANTAR REGION IMPROVED, CONTINUES TO DENY DISCOMFORT IN R FOOT. DR VAZQUEZ NOTIFIED OF R FOOT DISCOLORATION AND IMPROVEMENT.
[2023-12-11] MEDS ORDERED: Clopidogrel Bisulfate 75 MG Tab ONE (14:24)
--- NOTE | 2023-12-11 14:35 | NUR ---
PT AMB TO THE BATHROOM, GAIT STEADY; SITE UNCHANGED WITH ACTIVITY. PT DRESSED SELF WITHOUT PROBLEM, SITE UNCHANGED; IV REMOVED-CANNULA INTACT.
--- NOTE | 2023-12-11 14:50 | NUR ---
PT RECEIVED DISCHARGE INSTRUCTIONS, MED LIST AND AFTER CARE INSTRUCTIONS; VERBALIZED GOOD UNDERSTANDING. PT LEFT FACILITY VIA W/C, CONDITION STABLE.
== END 2023-12-11 14:50 | disposition home or self-care (01) ==
LOC: SDS 07:14 → MHTC 07:20 → SDS 14:50
DX: I70.229 Atherosclerosis of native arteries of extremities with rest pain, unspecified extremity (principal); Z98.890 Other specified postprocedural states
CPT/HCPCS: 76937; 85347; 99152; 99153; A9270; C1714; C1725; C1753; C1760; C1769; C1874; C1887; C1894; C2623; J1644; J2250; J2997; J3010; J7030; J7050; Q9967

== ENCOUNTER → 2024-06-18 | Outpatient (CLI) | payer OTHER ==
[~2024-06-18] MED LIST changes: +OTC SLEEP AID PO; +[UNRECOGNIZED DRUG - OTHER] PO
[2024-06-18 11:44] LABS: BASOPHILS ABSOLUTE AUTO 0.07 K/mm3 (0.00-0.23); BASOPHILS PERCENT AUTO 1 % (0-2); EOSINOPHILS ABSOLUTE AUTO 0.13 K/mm3 (0.00-0.68); EOSINOPHILS PERCENT AUTO 2 % (0-6); Hemoglobin 12.9 g/dL (11.5-16.0); IMMATURE GRAN ABSOLUTE AUTO 0.02 K/mm3 (0.00-0.10); IMMATURE GRAN PERCENT AUTO 0 % (0-1); LYMPHOCYTES ABSOLUTE AUTO 1.85 K/mm3 (0.84-5.20); LYMPHOCYTES PERCENT AUTO 27 % (21-46); MONOCYTES ABSOLUTE AUTO 0.64 K/mm3 (0.16-1.47); MONOCYTES PERCENT AUTO 9 % (4-13); Mean Corpuscular HGB 31.4 pg (26.0-34.0); Mean Corpuscular HGB Conc 33.9 g/dL (31.5-36.5); Mean Corpuscular Volume 93 fL (80-100); Mean Platelet Volume 10.1 fL (9.1-12.4); NEUTROPHILS ABSOLUTE AUTO 4.23 K/mm3 (1.96-9.15); NEUTROPHILS PERCENT AUTO 61 % (41-73); Platelet Count 346 K/mm3 (150-400); RDW Coefficient Variation 12.5 % (11.7-14.2); RDW Standard Deviation 42.2 fL (35.1-46.3); Red Blood Cell Count 4.11 M/mm3 (3.80-5.20); White Blood Cell Count 6.94 K/mm3 (4.00-11.30)
[2024-06-18 11:52] LABS: Alanine Aminotransfer (ALT/SGP 25 U/L (12-78); Albumin/Globulin Ratio 1.1 (0.8-1.8); Alk Phos 58 U/L (50-136); Anion Gap 10 mmol/L (3-11); Aspartate Aminotrans (AST/SGOT 22 U/L (12-37); Bilirubin, Total 0.4 mg/dL (0.1-1.0); Blood Urea Nitrogen 25 mg/dL (8-24); Bun/Creatinine Ratio 35.2 (12.0-20.0); CHOL/HDL RATIO 2.4; CO2, Blood 27 mmol/L (21-32); Calcium, Blood 8.9 mg/dL (8.5-10.1); Chloride, Blood 102 mmol/L (98-108); Cholesterol 146 mg/dL (50-200); Creatinine, Blood 0.71 mg/dL (0.40-1.00); Globulin, Blood 3.6 g/dL (2.2-4.0); Glomerular Filtration Rate 96 (60-); Glucose, Blood 98 mg/dL (70-99); HDL Cholesterol 62 mg/dL (>39); LDL/HDL RATIO 1.1; Low Density Lipoprotein Chol 70 mg/dL (0-110); Potassium, Blood 3.8 mmol/L (3.5-5.5); Sodium, Blood 135 mmol/L (136-145); Total Protein, Blood 7.6 g/dL (6.4-8.2); Triglycerides 68 mg/dL (30-160); Very Low Density Lipoprot Chol 14 mg/dL (6-32)
== END | disposition home or self-care (01) ==
LOC: LAB 08:15 → LAB SHORT 08:15
PROVIDERS: Family Medicine
DX: Z51.81 Encounter for therapeutic drug level monitoring (principal); Z79.899 Other long term (current) drug therapy
CPT/HCPCS: 80053; 80061; 82306; 83036; 84443; 85025